=== PATIENT | female | born 1975 | race Caucasian/White ===

== ENCOUNTER 2020-11-02 21:31 | Emergency (ER) | payer BC ==
[~2020-11-02] VITALS: Ht 165.1 cm; Wt 65.8 kg
--- NOTE | 2020-11-02 21:50 | NUR ---
PATIENT WAS MSE BY DR SIMENTAL IN ROOM 01B.
[2020-11-02] MEDS ORDERED: predniSONE 20 MG TABLET PO ONE (22:00)
[2020-11-02] MEDS ORDERED: TRIA15CR2 TP (22:06)
[2020-11-02] MEDS ORDERED: predniSONE 20 MG TABLET ONE (22:11)
--- NOTE | 2020-11-02 22:12 | NUR ---
Patient discharged to home in stable condition. Written and verbal after care instructions given. Patient verbalizes understanding of instructions. Stressed follow up or return to ER for worsening s/s.
[2020-11-02 22:13] VITALS: BP 109/77
== END 2020-11-02 22:14 | disposition home or self-care (01) ==
LOC: ER 21:34
DX: S50.861A Insect bite (nonvenomous) of right forearm, initial encounter (principal); W57.XXXA Bitten or stung by nonvenomous insect and other nonvenomous arthropods, initial encounter; Y93.9 Activity, unspecified; Y92.89 Other specified places as the place of occurrence of the external cause; L29.9 Pruritus, unspecified; Z88.6 Allergy status to analgesic agent; Z88.5 Allergy status to narcotic agent
CPT/HCPCS: 99283; J7512; A4663

== ENCOUNTER 2021-07-14 18:43 | Emergency (ER) | payer SELFPAY ==
[~2021-07-14 18:43] MED LIST: TRIA15CR2 TP
--- NOTE | 2021-07-14 21:00 | NUR ---
Patient was called to be triaged but was not present in the waiting room or outside of ER
--- NOTE | 2021-07-14 21:30 | NUR ---
Patient was called to be triaged but was not present.
--- NOTE | 2021-07-14 22:30 | NUR ---
Patient was called to be triaged but was not present. Patient was not triaged or seen by [facility].
== END 2021-07-14 22:30 | disposition left against medical advice (07) ==
LOC: ER 18:45
DX: Z53.21 Procedure and treatment not carried out due to patient leaving prior to being seen by health care provider (principal)